=== PATIENT | male | born 1990 | race Caucasian/White ===

== ENCOUNTER 2018-12-30 11:52 | Emergency (ER) | payer BC, OTHER ==
[~2018-12-30] VITALS: Ht 185.4 cm; Wt 93.0 kg
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
[2018-12-30] MEDS ORDERED: HYDROcodone/APAP 7.5 MG/325 MG (LORTAB, LORCET PLUS) TABLET PO ONE (12:15)
--- NOTE | 2018-12-30 12:38 | Diagnostic Imaging Report ---
INDICATION: Left knee pain. AP, oblique, and lateral views of the left knee are obtained. FINDINGS: No fracture or acute bony abnormality is seen. IMPRESSION: Negative left knee. Dictated by: Dictated on workstation # [id number]
[2018-12-30] MEDS ORDERED: ACHD5005 PO (12:58)
[2018-12-30 13:10] VITALS: BP 140/88
== END 2018-12-30 13:10 | disposition home or self-care (01) ==
LOC: ER 11:54
DX: M25.562 Pain in left knee (principal); F17.210 Nicotine dependence, cigarettes, uncomplicated; Z90.89 Acquired absence of other organs; Z88.1 Allergy status to other antibiotic agents; W22.03XA Walked into furniture, initial encounter
CPT/HCPCS: 73562